=== PATIENT | female | born 1965 | race Caucasian/White ===

== ENCOUNTER → 2018-01-09 | Outpatient (CLI) | payer BC ==
--- NOTE | 2018-01-09 18:16 | Diagnostic Imaging Report ---
INDICATION: Screening. At this time there are no current complaints. EXAMINATION: Bilateral digital screening mammogram with CAD. 3D tomographic images were obtained and reviewed. The current study was also evaluated with a Computer Aided Detection (CAD) system. COMPARISON: This study was compared to the prior exams of 03/21/2016, 04/06/2014 and 03/08/2011. FINDINGS: The fibroglandular tissue in both breasts is heterogeneously dense. This does limit the sensitivity of this exam. Overall, there does not appear to have been any significant change when compared to the prior study. No primary or secondary sign of malignancy is noted. IMPRESSION: There is no radiographic evidence for malignancy. ACR BI-RADS Category 1: Negative. Result letter will be mailed to the patient. Note: At least 10% of breast cancer is not imaged by mammography. Dictated by: Dictated on workstation # [id number]
== END ==
LOC: RAD 07:26
PROVIDERS: ATTEND Internal Medicine
DX: Z12.31 Encounter for screening mammogram for malignant neoplasm of breast (principal)
CPT/HCPCS: 77067

== ENCOUNTER → 2019-01-12 | Outpatient (CLI) | payer BC ==
--- NOTE | 2019-01-12 09:04 | Diagnostic Imaging Report ---
INDICATION: Routine screening. COMPARISON: 01/09/2018 and 03/21/2016. TECHNIQUE: 2D and 3D bilateral screening mammography was performed with CAD. FINDINGS: Both breasts are heterogeneously dense, limiting the sensitivity of mammography. No mass or malignant appearing microcalcifications are identified. The axillae are unremarkable. IMPRESSION: No mammographic features suspicious for malignancy are identified. ACR BI-RADS Category 1: Negative. Result letter will be mailed to the patient. Note: At least 10% of breast cancer is not imaged by mammography. Dictated by: Dictated on workstation # [id number]
== END ==
LOC: RAD 07:50
PROVIDERS: ATTEND Internal Medicine
DX: Z12.31 Encounter for screening mammogram for malignant neoplasm of breast (principal)
CPT/HCPCS: 77067

== ENCOUNTER → 2020-08-18 | Outpatient (CLI) | payer BC ==
--- NOTE | 2020-08-18 11:36 | Diagnostic Imaging Report ---
PROCEDURE: US left lower extremity venous. TECHNIQUE: Multiple real-time grayscale images were obtained over the left lower extremity in various projections. Additional duplex Doppler and color Doppler images were also obtained. INDICATION: Left thigh pain and swelling. FINDINGS: There is no evidence of left lower extremity DVT. Left lower extremity deep venous system shows normal compressibility with normal response to augmentation and Valsalva. No fluid collection or mass is detected. IMPRESSION: No evidence of left lower extremity DVT. Dictated by: Dictated on workstation # [id number]
== END ==
LOC: RAD 10:44
PROVIDERS: ATTEND Chiropractor
DX: M79.652 Pain in left thigh (principal); M79.89 Other specified soft tissue disorders

== ENCOUNTER 2020-08-30 17:41 | Inpatient (IN) | payer BC ==
[~2020-08-30] VITALS: Ht 157.5 cm; Wt 77.4 kg
[2020-08-30] MEDS ORDERED: ONDANSETRON 4 MG/2 ML (SDV) Z0FRAN IVP ONE (18:00)
[2020-08-30] MEDS ORDERED: PANTOPRAZOLE 40 MG (PROTONIX) VIAL IV ONE (18:00)
[2020-08-30] MEDS ORDERED: LACTATED RINGERS 1,000 ML IV ONE (18:00)
--- NOTE | 2020-08-30 18:01 | ED GI ---
General Stated Complaint: ABD PAIN/N/V Source of Information: Patient History of Present Illness Date Seen by Provider: Aug 30, 2020 Time Seen by Provider: 17:51 Initial Comments PT ARRIVES VIA POV FROM HOME WITH PT STATES SHE HAS HAD NAUSEA AND VOMITING ALL DAY TODAY, WITH EPIGASTRIC PAIN STATES IT FEELS LIKE ACID REFLUX STATES SHE THREW UP EVERY 30 MINUTES FROM 10 AM TO 3 PM NO DIARRHEA. LAST BM WAS YESTERDAY AND WAS NORMAL STATES SHE HAS NOT HAD ANYTHING TO EAT OR DRINK TODAY VOIDING A NORMAL AMOUNT AND NO URINARY SYMPTOMS NO FEVER DOES HAVE SOME MID BACK TIGHTNESS--THINKS IT IS FROM VOMITING SO MUCH STATES ABOUT 2 WEEKS AGO, SHE HAD A SIMILAR EPISODE AFTER SHE ATE--AGAIN FELT LIKE "ACID" STATES SHE ONLY VOMITED ONCE HAS BEEN TAKING PEPCID BUT FEELS LIKE IT HAS BEEN MAKING IT WORSE NO SICK CONTACTS OR SUSPICIOUS FOODS STATES 1 1/2 WEEKS AGO SHE WAS DX WITH DVT IN LEFT LEG--UNKNOWN CAUSE, EXCEPT POSSIBLY DUE TO CONTROL HAS BEEN ON XARELTO LMP 1 1/2 WEEKS AGO, WAS ON OCP'S, BUT THESE WERE DC'D WHEN DX WITH DVT. PT HAS NO OTHER MEDICAL PROBLEMS PRIOR TO DVT. PT HAS HAD COVID-19 VACCINES X 2--MODERNA, LAST ONE JULY 08, 2020 PCP: DR. RIGGS Allergies and Home Medications Allergies Coded Allergies: No Known Drug Allergies (Unverified , 08/30/20) Patient Home Medication List Home Medication List Reviewed: Yes Review of Systems Review of Systems Constitutional: no symptoms reported Respiratory: No Symptoms Reported Cardiovascular: No Symptoms Reported Gastrointestinal: See HPI, Abdominal Pain, Nausea, Vomiting Genitourinary: No Symptoms Reported Musculoskeletal: no symptoms reported Skin: no symptoms reported Psychiatric/Neurological: No Symptoms Reported Endocrine: No Symptoms Reported Hematologic/Lymphatic: See HPI Past Diexcyg-Ompkxq-Yuoflz Hx Past Med/Social Hx: Reviewed and Corrections made Patient Social History Alcohol Use: Denies Use Drug of Choice: DENIES Smoking Status: Never a Smoker Past Medical History Surgeries: Yes ( X 2) Respiratory: No Cardiac: Yes (DVT LEFT LEG DX 07/2020) Deep Vein Thrombosis Neurological: No : No Genitourinary: No Gastrointestinal: No Musculoskeletal: No Endocrine: No HEENT: No Cancer: No Psychosocial: No Integumentary: No Blood Disorders: No Physical Exam Vital Signs Vital Signs - First Documented 08/30/20 17:50 Temp 38.0 Pulse 120 Resp 18 B/P (MAP) 139/93 (108) Pulse Ox 94 O2 Delivery Room Air Capillary Refill : Height/Weight/BMI Height: '" Weight: lbs. oz. kg; BMI Method: General Appearance: WD/WN, no apparent distress Respiratory: normal breath sounds, no respiratory distress, no accessory muscle use Cardiovascular: regular rate, rhythm, no murmur Gastrointestinal: normal bowel sounds, soft, no organomegaly, no pulsatile mass ; No distended, No guarding, No rebound; tenderness (DIFFUSE UPPER ABDOMINAL TENDERNESS, MOST TENDER IN EPIGASTRIC AREA. ); No hernia, No mass Extremities: non-tender, no pedal edema, normal capillary refill Back: no CVA tenderness, no vertebral tenderness, other (MILD PARAVERTEBRAL MUSCLE TENDERNESS IN MID BACK) Neurologic/Psychiatric: [facility] II-XII nml as tested, no motor/sensory deficits, alert, normal mood/affect, oriented x 3 Skin: normal color, warm/dry; No rash Focused Exam Lactate Level 08/30/20 18:29: Lactic Acid Level 1.80 Lactic Acid Level Laboratory Tests Test 08/30/20 18:29 Lactic Acid Level 1.80 MMOL/L (0.50-2.00) Progress/Results/Core Measures Results/Orders Lab Results Laboratory Tests Test 08/30/20 17:58 08/30/20 18:29 08/30/20 18:30 Range/Units White Blood Count 26.5 H 4.3-11.0 10^3/uL Red Blood Count 4.71 3.80-5.11 10^6/uL Hemoglobin 13.5 11.5-16.0 g/dL Hematocrit 42 35-52 % Mean Corpuscular Volume 88 80-99 fL Mean Corpuscular Hemoglobin 29 25-34 pg Mean Corpuscular Hemoglobin Concent 33 32-36 g/dL Red Cell Distribution Width 13.9 10.0-14.5 % Platelet Count 613 H 130-400 10^3/uL Mean Platelet Volume 9.7 9.0-12.2 fL Immature Granulocyte % (Auto) 1 % Neutrophils (%) (Auto) 88 H 42-75 % Lymphocytes (%) (Auto) 5 L 12-44 % Monocytes (%) (Auto) 7 0-12 % Eosinophils (%) (Auto) 0 0-10 % Basophils (%) (Auto) 0 0-10 % Neutrophils # (Auto) 23.4 H 1.8-7.8 10^3/uL Lymphocytes # (Auto) 1.2 1.0-4.0 10^3/uL Monocytes # (Auto) 1.7 H 0.0-1.0 10^3/uL Eosinophils # (Auto) 0.0 0.0-0.3 10^3/uL Basophils # (Auto) 0.1 0.0-0.1 10^3/uL Immature Granulocyte # (Auto) 0.1 0.0-0.1 10^3/uL Neutrophils % (Manual) 87 % Lymphocytes % (Manual) 8 % Monocytes % (Manual) 4 % Eosinophils % (Manual) 0 % Basophils % (Manual) 0 % Band Neutrophils 1 % Blood Morphology Comment NORMAL Sodium Level 137 135-145 MMOL/L Potassium Level 3.5 L 3.6-5.0 MMOL/L Chloride Level 99 98-107 MMOL/L Carbon Dioxide Level 22 21-32 MMOL/L Anion Gap 16 H 5-14 MMOL/L Blood Urea Nitrogen 7 7-18 MG/DL Creatinine 0.74 0.60-1.30 MG/DL Estimat Glomerular Filtration Rate > 60 BUN/Creatinine Ratio 9 Glucose Level 139 H 70-105 MG/DL Calcium Level 9.5 8.5-10.1 MG/DL Corrected Calcium 9.5 8.5-10.1 MG/DL Magnesium Level 2.0 1.6-2.4 MG/DL Total Bilirubin 1.2 H 0.1-1.0 MG/DL Aspartate Amino Transf (AST/SGOT) 26 5-34 U/L Alanine Aminotransferase (ALT/SGPT) 35 0-55 U/L Alkaline Phosphatase 108 40-136 U/L Total Protein 8.2 6.4-8.2 GM/DL Albumin 4.0 3.2-4.5 GM/DL Amylase Level 48 25-125 U/L Lipase 9 8-78 U/L Serum Test, Qualitative NEGATIVE NEGATIVE Lactic Acid Level 1.80 0.50-2.00 MMOL/L Urine Color ORANGE Urine Clarity CLEAR Urine pH 7.5 5-9 Urine Specific [place] 1.020 1.016-1.022 Urine Protein TRACE H NEGATIVE Urine Glucose (UA) NEGATIVE NEGATIVE Urine Ketones TRACE H NEGATIVE Urine Nitrite NEGATIVE NEGATIVE Urine Bilirubin NEGATIVE NEGATIVE Urine Urobilinogen 4.0 < = 1.0 MG/DL Urine Leukocyte Esterase NEGATIVE NEGATIVE Urine RBC (Auto) 1+ H NEGATIVE Urine RBC 0-2 /HPF Urine WBC 0-2 /HPF Urine Squamous Epithelial Cells 2-5 /HPF Urine Crystals NONE /LPF Urine Bacteria FEW H /HPF Urine Casts NONE /LPF Urine Mucus NEGATIVE /LPF Urine Culture Indicated NO My Orders Orders - DEANA PACE DO Ed Iv/Invasive Line Start (08/30/20 17:55) Monitor-Rhythm Ecg Trace Only (08/30/20 17:55) Amylase (08/30/20 17:55) Cbc With Automated Diff (08/30/20 17:55) Comprehensive Metabolic Panel (08/30/20 17:55) Lipase (08/30/20 17:55) Magnesium (08/30/20 17:55) Ua Culture If Indicated (08/30/20 17:55) Ondansetron Injection (Zofran Injectio (08/30/20 18:00) Ed Iv/Invasive Line Start (08/30/20 17:55) Lactated Ringers (Lr 1000 Ml Iv Solution (08/30/20 18:00) Pantoprazole Injection (Protonix Injecti (08/30/20 18:00) Hcg,Qualitative Serum (08/30/20 18:01) Manual Differential (08/30/20 17:58) Lactic Acid Analyzer (08/30/20 18:11) Blood Culture (08/30/20 18:11) Ct Abdomen/Pelvis W (08/30/20 18:32) Medications Given in ED Current Medications Medications Dose Ordered Sig/Radha Route Start Time Stop Time Status Last Admin Dose Admin Lactated Ringer's 1,000 ml @ 0 mls/hr Q0M ONCE IV 08/30/20 18:00 08/30/20 18:01 DC 08/30/20 18:45 1,000 MLS/HR Ondansetron HCl 4 mg ONCE ONCE IVP 08/30/20 18:00 08/30/20 18:01 DC 08/30/20 18:42 4 MG Pantoprazole 40 mg ONCE ONCE IV 08/30/20 18:00 08/30/20 18:01 DC 08/30/20 18:44 40 MG Vital Signs/I&O 08/30/20 17:50 Temp 38.0 Pulse 120 Resp 18 B/P (MAP) 139/93 (108) Pulse Ox 94 O2 Delivery Room Air Progress Progress Note : Progress Note GIVEN IV FLUIDS, ZOFRAN, PROTONIX WITH MUCH IMPROVEMENT IN SYMPTOMS PT LATER C/O EPIGASTRIC PAIN-RELIEVED WITH FENTANYL GAVE ZOSYN NO DETERIORATION IN PT'S CONDITION DURING ER STAY Diagnostic Imaging Comments CT ABDOMEN/PELVIS--PER RADIOLOGIST REPORT AT 1952 IMPRESSION: Abnormal appearance of the gallbladder which appears hydropic. There also is a hyperemic gallbladder wall with some thickening and pericholecystic fluid. Acute cholecystitis and cholelithiasis cannot be excluded. Recommend further evaluation with right upper quadrant ultrasound. Fibroid uterus. This too could be better evaluated with pelvic ultrasound. No other acute abnormality in the abdomen or pelvis. Reviewed: Reviewed by Me Departure Communication (Admissions) 1954--SPOKE WITH DR. CRAVEN, SURGEON, ACCEPTS PT FOR ADMIT. ADVISES GERSON. 1956--SPOKE WITH DR. RIGGS, FOR MEDICAL MANAGEMENT. WILL HOLD XARELTO, ANTICIPATE SURGERY TOMORROW Impression Primary Impression: Acute cholecystitis Disposition: ADMITTED INPATIENT Condition: Improved Admissions Decision to Admit Reason: Admit from ER (General) Decision to Admit/Date: Aug 30, 2020 Time/Decision to Admit Time: 19:55 Departure-Patient Inst. Referrals: VALDEMAR RIGGS MD (PCP/Family) Primary Care Physician DEANA PACE DO Aug 30, 2020 18:01
[2020-08-30 18:06] LABS: BASOPHILS # (AUTO) 0.1 10^3/uL (0.0-0.1); BASOPHILS % (AUTO) 0 % (0-10); HEMATOCRIT 42 % (35-52); MEAN PLATELET VOLUME 9.7 fL (9.0-12.2)
[2020-08-30 18:07] LABS: EOSINOPHILS % (AUTO) 0 % (0-10); HEMOGLOBIN 13.5 g/dL (11.5-16.0); LYMPHOCYTES # (AUTO) 1.2 10^3/uL (1.0-4.0); LYMPHOCYTES % (AUTO) 5 % (12-44); MEAN CORPUSCULAR HEMOGLOBIN 29 pg (25-34); MEAN CORPUSCULAR HGB CONC 33 g/dL (32-36); MEAN CORPUSCULAR VOLUME 88 fL (80-99); MONOCYTES # (AUTO) 1.7 10^3/uL (0.0-1.0); MONOCYTES % (AUTO) 7 % (0-12); NEUTROPHILS # (AUTO) 23.4 10^3/uL (1.8-7.8); NEUTROPHILS % (AUTO) 88 % (42-75); PLATELET COUNT 613 10^3/uL (130-400); WHITE BLOOD COUNT 26.5 10^3/uL (4.3-11.0)
[2020-08-30 18:19] LABS: BAND NEUTROPHILS 1 %; BASOPHILS % (MANUAL) 0 %; EOSINOPHILS % (MANUAL) 0 %; LYMPHOCYTES % (MANUAL) 8 %; MONOCYTES % (MANUAL) 4 %; NEUTROPHILS % (MANUAL) 87 %; RBC MORPH NORMAL
[2020-08-30 18:24] LABS: CHLORIDE 99 MMOL/L (98-107); POTASSIUM 3.5 MMOL/L (3.6-5.0); SODIUM 137 MMOL/L (135-145)
[2020-08-30 18:25] LABS: AMYLASE 48 U/L (25-125)
[2020-08-30 18:26] LABS: CALCIUM 9.5 MG/DL (8.5-10.1)
[2020-08-30 18:27] LABS: GLUCOSE 139 MG/DL (70-105); TOTAL PROTEIN 8.2 GM/DL (6.4-8.2)
[2020-08-30 18:28] LABS: CARBON DIOXIDE 22 MMOL/L (21-32)
[2020-08-30 18:29] LABS: BILIRUBIN,TOTAL 1.2 MG/DL (0.1-1.0)
[2020-08-30 18:30] LABS: ALKALINE PHOSPHATASE 108 U/L (40-136); CREATININE SERUM 0.74 MG/DL (0.60-1.30); GFR ESTIMATED > 60
[2020-08-30 18:31] LABS: BUN/CREATININE RATIO 9
[2020-08-30 18:33] LABS: ALANINE AMINOTRANSFERASE 35 U/L (0-55)
[2020-08-30 18:34] LABS: LIPASE 9 U/L (8-78)
[2020-08-30 18:38] LABS: BILIRUBIN,URINE NEGATIVE (NEGATIVE); CLARITY,URINE CLEAR; COLOR,URINE ORANGE; GLUCOSE, URINE (UA) NEGATIVE (NEGATIVE); KETONES,URINE TRACE (NEGATIVE); LEUKOCYTE ESTERASE ,URINE NEGATIVE (NEGATIVE); NITRITE,URINE NEGATIVE (NEGATIVE); PH,URINE 7.5 (5-9); PROTEIN,URINE TRACE (NEGATIVE)
[2020-08-30 18:46] LABS: BACTERIA,URINE FEW /HPF; RBC,URINE 0-2 /HPF; WBC,URINE 0-2 /HPF
--- NOTE | 2020-08-30 19:50 | Diagnostic Imaging Report ---
PROCEDURE: CT abdomen and pelvis with contrast. TECHNIQUE: Multiple contiguous axial images were obtained through the abdomen and pelvis after administration of intravenous contrast. Auto Exposure Controls were utilized during the CT exam to meet ALARA standards for radiation dose reduction. All CT scans use one or more of the following dose optimizing techniques: automated exposure control, MA and/or KvP adjustment based on patient size and exam type or iterative reconstruction. INDICATION: Abdominal pain, nausea, vomiting and left lower quadrant pain. FINDINGS: Heart size is normal. The lung bases are clear. The liver is normal in size without focal lesions. Gallbladder is hydropic. There is some wall thickening and pericholecystic fluid. There is no biliary ductal dilatation. The spleen is normal. The pancreas and adrenal glands are unremarkable. The kidneys are normal in appearance. The aorta is nonaneurysmal. The bowel gas pattern is nonspecific. There appears to be a fibroid uterus. There is no free air. There is no pelvic mass or adenopathy. Bladder is normal. The osseous structures are unremarkable. IMPRESSION: Abnormal appearance of the gallbladder which appears hydropic. There also is a hyperemic gallbladder wall with some thickening and pericholecystic fluid. Acute cholecystitis and cholelithiasis cannot be excluded. Recommend further evaluation with right upper quadrant ultrasound. Fibroid uterus. This too could be better evaluated with pelvic ultrasound. No other acute abnormality in the abdomen or pelvis. Dictated by: Dictated on workstation # [id number]
[2020-08-30] MEDS ORDERED: PIPERACILLIN SODIUM/TAZOBACTAM 4.5 GM in NS (IVPB) 100 ML IV ONE (20:15)
[2020-08-30] MEDS ORDERED: fentaNYL INJ 100 MCG/2 ML AMP IVP ONE (20:45)
[2020-08-30] MEDS ORDERED: D5 1/2 NS W/KCL 20 MEQ/L 1,000 ML IV ONE (21:45)
[2020-08-30 21:52] VITALS: BP 137/84
[2020-08-30] MEDS: D5 1/2 NS W/KCL 20 MEQ/L 1,000 ML IV SCH (22:41)
[2020-08-30] MEDS: ONDANSETRON 4 MG/2 ML (SDV) Z0FRAN IV PRN (23:39)
[2020-08-30] MEDS: fentaNYL INJ 100 MCG/2 ML AMP IV PRN (23:39)
[2020-08-31] VITALS (13 sets, daily range): BP systolic 117–146; BP diastolic 59–89
[2020-08-31] MEDS ORDERED: NS (IVPB) 100 ML ONE (02:05)
[2020-08-31] MEDS ORDERED: PIPERACILLIN/TAZO 4.5 GM VIAL (ZOSYN) IV ONE (02:05)
[2020-08-31] MEDS: PIPERACILLIN/TAZO 4.5 GM/NS 100 ML IV SCH ×6 (02:20→17:50)
[2020-08-31 05:41] LABS: BASOPHILS # (AUTO) 0.1 10^3/uL (0.0-0.1); BASOPHILS % (AUTO) 0 % (0-10); EOSINOPHILS % (AUTO) 0 % (0-10); HEMATOCRIT 37 % (35-52); LYMPHOCYTES % (AUTO) 3 % (12-44); MEAN CORPUSCULAR HEMOGLOBIN 29 pg (25-34); MEAN CORPUSCULAR HGB CONC 32 g/dL (32-36); MEAN CORPUSCULAR VOLUME 90 fL (80-99); MEAN PLATELET VOLUME 10.7 fL (9.0-12.2); MONOCYTES # (AUTO) 2.4 10^3/uL (0.0-1.0); MONOCYTES % (AUTO) 6 % (0-12); NEUTROPHILS # (AUTO) 34.1 10^3/uL (1.8-7.8); NEUTROPHILS % (AUTO) 90 % (42-75); PLATELET COUNT 384 10^3/uL (130-400)
[2020-08-31 05:44] LABS: WHITE BLOOD COUNT 38.2 10^3/uL (4.3-11.0)
[2020-08-31] MEDS: ONDANSETRON 4 MG/2 ML (SDV) Z0FRAN IV PRN (05:47)
[2020-08-31] MEDS: fentaNYL INJ 100 MCG/2 ML AMP IV PRN ×5 (05:52→15:34)
[2020-08-31 05:59] LABS: ALBUMIN 3.4 GM/DL (3.2-4.5); CHLORIDE 100 MMOL/L (98-107); POTASSIUM 3.6 MMOL/L (3.6-5.0); SODIUM 134 MMOL/L (135-145)
[2020-08-31 06:00] LABS: AMYLASE 31 U/L (25-125)
[2020-08-31 06:01] LABS: CALCIUM 8.7 MG/DL (8.5-10.1)
[2020-08-31 06:02] LABS: GLUCOSE 147 MG/DL (70-105)
[2020-08-31 06:03] LABS: CARBON DIOXIDE 22 MMOL/L (21-32)
[2020-08-31 06:04] LABS: BILIRUBIN,TOTAL 1.6 MG/DL (0.1-1.0)
[2020-08-31 06:05] LABS: ALKALINE PHOSPHATASE 96 U/L (40-136); GFR ESTIMATED > 60
[2020-08-31 06:06] LABS: BUN/CREATININE RATIO 7
[2020-08-31 06:08] LABS: ALANINE AMINOTRANSFERASE 27 U/L (0-55)
[2020-08-31 06:09] LABS: LIPASE 6 U/L (8-78)
[2020-08-31] MEDS: D5 1/2 NS W/KCL 20 MEQ/L 1,000 ML IV SCH ×2 (09:02→11:57)
[2020-08-31] MEDS: PANTOPRAZOLE 40 MG (PROTONIX) VIAL IV SCH (09:02)
[2020-08-31] MEDS ORDERED: ALBU18HF2 INH (14:26)
[2020-08-31] MEDS ORDERED: RIVA15TA PO (14:26)
[2020-08-31] MEDS ORDERED: FAMO20TA3 PO (14:26)
[2020-08-31] MEDS ORDERED: ACET-2267 PO (14:26)
--- NOTE | 2020-08-31 16:49 | History & Physical-Surgical ---
History of Present Illness History of Present Illness Reason for visit/HPI CC: N/V abdominal pain 54 year old female with 2 weeks of abdominal pain located in epigastric/ruq. Radiates to back. Thought it was more reflux. Eating seemed to make it worse. Nothing really making better. Then had food and thought had food poisoning having multiple episodes of nausea and vomiting. Patient has been on Xarelto for a blood clot which she last took yesterday morning at 8 am for possible blood clot, but u/s was negative. She had ct scan abdomen and pelvis with distended gallbladder and thickened wall with pericholecystic fluid. Date of Admission Aug 30, 2020 at 20:00 Date Seen by a Provider: Aug 31, 2020 Time Seen by a Provider: 16:48 I consulted on this patient on 08/31/20 16:43 Attending Physician Iker Dhillon DO Admitting Physician Lucio Ayoub MD Consult Allergies and Home Medications Allergies Coded Allergies: No Known Drug Allergies (Unverified , 08/30/20) Home Medications Acetaminophen 500 Mg Tablet, 500-1,000 MG PO Q8H PRN for PAIN-MILD (1-4), (Reported) Last Action: Reviewed Albuterol Sulfate 18 Gm Hfa.aer.ad, 2 PUFF INH Q6H PRN for SHORTNESS OF BREATH, (Reported) Last Action: Reviewed Famotidine 20 Mg Tablet, 20 MG PO BID PRN for HEARTBURN, (Reported) Last Action: Reviewed Rivaroxaban 15 Mg Tablet, 15 MG PO BID, (Reported) TAKING 15MG TWICE DAILY X 21 DAYS (STARTED 08-18-2020) Last Action: Reviewed Patient Home Medication List Home Medication List Reviewed: Yes Past Ohdydso-Zvupba-Bvjavs Hx Patient Social History Drug of Choice: DENIES Smoking Status: Never a Smoker Alcohol Use?: No Have you traveled recently?: No Surgeries History of Surgeries: Yes ( X 2) Respiratory History of Respiratory Disorde: No Cardiovascular History of Cardiac Disorders: Yes (DVT LEFT LEG DX 07/2020) Cardiac Disorders: Deep Vein Thrombosis Neurological History of Neurological Disord: No Reproductive System : No Genitourinary History of Genitourinary Disor: No Gastrointestinal History of Gastrointestinal Di: No Musculoskeletal History of Musculoskeletal Dis: No Endocrine History of Endocrine Disorders: No HEENT History of HEENT Disorders: No Cancer History of Cancer: No Psychosocial History of Psychiatric Problem: No Integumentary History of Skin or Integumenta: No Blood Transfusions History of Blood Disorders: No Reviewed Nursing Assessment Reviewed/Agree w Nursing PMH: Yes Family Medical History Significant Family History: No Pertinent Family Hx Review of Systems Constitutional: No chills, No diaphoresis, No weakness EENTM: No blurred vision, No double vision Respiratory: No cough, No dyspnea on exertion Cardiovascular: No chest pain, No palpitations Gastrointestinal: abdominal pain (RUQ), nausea, vomiting Genitourinary: No decreased output, No discharge Musculoskeletal: back pain Skin: No change in color, No change in hair/nails Psychiatric/Neurological: Denies Anxiety, Denies Depressed, Denies Emotional Problems All Other Systems Reviewed Negative Unless Noted: Yes (Negative excepted noted.) Physical Exam Vital Signs Vital Signs - First Documented 08/30/20 17:50 Temp 38.0 Pulse 120 Resp 18 B/P (MAP) 139/93 (108) Pulse Ox 94 O2 Delivery Room Air Capillary Refill : Less Than 3 Seconds Height, Weight, BMI Height: '" Weight: lbs. oz. kg; 31.20 BMI Method: General Appearance: No Apparent Distress, WD/WN HEENT: PERRL/EOMI, Normal ENT Inspection Neck: Normal Inspection, Non Tender, Supple Respiratory: Chest Non Tender, No Accessory Muscle Use, No Respiratory Distress Cardiovascular: Regular Rate, Rhythm, No JVD Gastrointestinal: Soft, Tenderness (ruq) Rectal: Deferred Back: Muscle Spasm Extremity: Normal Range of Motion, Non Tender Neurologic/Psychiatric: Alert, Oriented x3, No Motor/Sensory Deficits, Normal Mood/Affect, open shank coverer II-XII Norm as Tested Skin: Normal Color, Warm/Dry Lymphatic: No Adenopathy Data Review Labs Laboratory Tests 08/30/20 17:58: White Blood Count 26.5H, Red Blood Count 4.71, Hemoglobin 13.5, Hematocrit 42, Mean Corpuscular Volume 88, Mean Corpuscular Hemoglobin 29, Mean Corpuscular Hemoglobin Concent 33, Red Cell Distribution Width 13.9, Platelet Count 613H, Mean Platelet Volume 9.7, Immature Granulocyte % (Auto) 1, Neutrophils (%) (Auto) 88H, Lymphocytes (%) (Auto) 5L, Monocytes (%) (Auto) 7, Eosinophils (%) (Auto) 0, Basophils (%) (Auto) 0, Neutrophils # (Auto) 23.4H, Lymphocytes # (Auto) 1.2, Monocytes # (Auto) 1.7H, Eosinophils # (Auto) 0.0, Basophils # (Auto) 0.1, Immature Granulocyte # (Auto) 0.1, Neutrophils % (Manual) 87, Lymphocytes % (Manual) 8, Monocytes % (Manual) 4, Eosinophils % (Manual) 0, Basophils % (Manual) 0, Band Neutrophils 1, Blood Morphology Comment NORMAL, Sodium Level 137, Potassium Level 3.5L, Chloride Level 99, Carbon Dioxide Level 22, Anion Gap 16H, Blood Urea Nitrogen 7, Creatinine 0.74, Estimat Glomerular Filtration Rate > 60, BUN/Creatinine Ratio 9, Glucose Level 139H, Calcium Level 9.5, Corrected Calcium 9.5, Magnesium Level 2.0, Total Bilirubin 1.2H, Aspartate Amino Transf (AST/SGOT) 26, Alanine Aminotransferase (ALT/SGPT) 35, Alkaline [place] sphatase 108, Total Protein 8.2, Albumin 4.0, Amylase Level 48, Lipase 9, Serum Test, Qualitative NEGATIVE 08/30/20 18:29: Lactic Acid Level 1.80 08/30/20 18:30: Urine Color ORANGE, Urine Clarity CLEAR, Urine pH 7.5, Urine Specific [place] 1.020, Urine Protein TRACEH, Urine Glucose (UA) NEGATIVE, Urine Ketones TRACEH, Urine Nitrite NEGATIVE, Urine Bilirubin NEGATIVE, Urine Urobilinogen 4.0, Urine Leukocyte Esterase NEGATIVE, Urine RBC (Auto) 1+H, Urine RBC 0-2, Urine WBC 0-2, Urine Squamous Epithelial Cells 2-5, Urine Crystals NONE, Urine Bacteria FEWH, Urine Casts NONE, Urine Mucus NEGATIVE, Urine Culture Indicated NO 08/31/20 05:10: White Blood Count 38.2*H, Red Blood Count 4.18, Hemoglobin 12.0, Hematocrit 37, Mean Corpuscular Volume 90, Mean Corpuscular Hemoglobin 29, Mean Corpuscular Hemoglobin Concent 32, Red Cell Distribution Width 14.3, Platelet Count 384, Mean Platelet Volume 10.7, Immature Granulocyte % (Auto) 2, Neutrophils (%) (Auto) 90H, Lymphocytes (%) (Auto) 3L, Monocytes (%) (Auto) 6, Eosinophils (%) (Auto) 0, Basophils (%) (Auto) 0, Neutrophils # (Auto) 34.1H, Lymphocytes # (Auto) 1.0, Monocytes # (Auto) 2.4H, Eosinophils # (Auto) 0.0, Basophils # (Auto) 0.1, Immature Granulocyte # (Auto) 0.6H, Sodium Level 134L, Potassium Level 3.6, Chloride Level 100, Carbon Dioxide Level 22, Anion Gap 12, Blood Urea Nitrogen 5L, Creatinine 0.70, Estimat Glomerular Filtration Rate > 60, BUN/Creatinine Ratio 7, Glucose Level 147H, Calcium Level 8.7, Corrected Calcium 9.2, Total Bilirubin 1.6H, Aspartate Amino Transf (AST/SGOT) 22, Alanine Aminotransferase (ALT/SGPT) 27, Alkaline Phosphatase 96, Total Protein 7.0, Albumin 3.4, Amylase Level 31, Lipase 6L Microbiology 08/30/20 Blood Culture - Preliminary, Resulted No growth Assessment/Plan Assessment/Plan Admission Diagonsis ruq abdominal pain cholecystitis leukocytosis jail anticoagulation Admission Status: Observation Assessment/Plan ruq abdominal pain cholecystitis leukocytosis jail anticoagulation patient discussed risks and benefits of laparoscopic cholecystectomy IOC and all other indicated procedures she understands and wishes to proceed. On Zosyn NPO IV hydration Xarelto on hold IKER DHILLON DO Aug 31, 2020 16:49
[2020-08-31] MEDS ORDERED: ROCURONIUM 10 MG/ML 5 ML SYRINGE IV ONE (17:14)
[2020-08-31] MEDS ORDERED: proPOfol 200 MG/20 ML (DIPRIVAN) VIAL IV ONE (17:14)
[2020-08-31] MEDS ORDERED: SEVOFLURANE (ULTANE) 15 ML INHAL SOLN ONE ×5 (17:14→18:46)
[2020-08-31] MEDS ORDERED: fentaNYL INJ 100 MCG/2 ML AMP ONE (17:14)
[2020-08-31] MEDS ORDERED: MIDAZOLAM 2 MG/2 ML (VERSED) VIAL ONE (17:14)
[2020-08-31] MEDS ORDERED: ONDANSETRON 4 MG/2 ML (SDV) Z0FRAN ONE (17:14)
[2020-08-31] MEDS: LACTATED RINGERS 1,000 ML IV SCH ×3 (17:17→19:04)
[2020-08-31] MEDS ORDERED: LIDOCAINE/EPI 1%-1:100,000 (XYLOCAINE) 20ML ONE (17:33)
[2020-08-31] MEDS ORDERED: HYDROmorphone 2 MG/ML VIAL (DILAUDID) ONE (18:07)
[2020-08-31] MEDS ORDERED: GLYCOPYRROLATE 0.2 MG/ML (ROBINUL) 2 ML VIAL ONE (18:45)
[2020-08-31] MEDS ORDERED: NEOSTIGMINE 3 MG/3 ML VIAL ONE (18:45)
[2020-08-31] MEDS ORDERED: KETOROLAC 30 MG/ML VIAL ONE (18:47)
--- NOTE | 2020-08-31 18:49 | Diagnostic Imaging Report ---
INDICATION: Intraoperative fluoroscopy. FINDINGS: 21 seconds of fluoroscopy was utilized. There is no intrahepatic or extrahepatic biliary ductal dilatation. There is however what appears be a filling defect in the distal common bile duct. There is passage of contrast into the duodenum. There is minimal extravasation following cholecystectomy IMPRESSION: Findings highly suspect for distal choledocholithiasis with minimal dilatation of the common bile duct. Please correlate with formal operative report. Dictated by: Dictated on workstation # [id number]
--- NOTE | 2020-08-31 19:17 | Progress Note-Post Operative ---
Post-Operative Progess Note Surgeon (s)/Equipment Detailer (s) Surgeon IKER CRAVEN DO Equipment Detailer: Dr. Benito to assist in retraction dissection and closure. Pre-Operative Diagnosis cholecystitis Post-Operative Diagnosis hydrops, cholecystitis, choledocholithiasis Procedure & Operative Findings Date of Procedure 08/31/20 Procedure Performed/Findings PROCEDURE: Laparoscopic cholecystectomy with intraoperative cholangiogram. COMPLICATIONS: None. PROCEDURE: The patient was taken to the operating suite and was prepped and draped in sterile fashion. A surgical pause was performed. Just superior to the umbilicus, a 12 mm incision was made. Dissection was taken down to the fascia, which was then scored and grasped with a Doretha and the abdomen was then entered. A 0 Vicryl suture was placed in a eusxkv-lo-ngjav fashion and a Belle trocar was placed and secured. Pneumoperitoneum was achieved. A 5mm trochar place in the subxyphoid and 2 in the right upper quadrant. The gallbladder was distended, inflamed. It was then grasped, decompressed and elevated. The cystic duct, and cystic artery were then dissected out. Clip was placed on the distal portion of the cystic duct which was then partially transected. An arrow catheter was inserted into the duct. The cholangiogram was then performed. Filing defect distal common bile duct and contrast made its way into the duodenum. Catheter removed. Clips were placed on proximal portion of the cystic duct and then the duct was then transected. Clips were placed along the proximal and distal portion of the cystic artery which was then transected. Hook cautery was used to dissect the gallbladder from the gallbladder fossa achieving hemostasis. The gallbladder was placed in an Endobag and removed through the 12 mm trocar site. The abdomen was then reinspected. Copious amounts of irrigation were used to irrigate the abdomen and there were no signs of active bleeding. A piece of surgicel was placed within the gallbladder fossa. Hemostasis had been achieved. A [address] in the gallbladder fossa and brought out through 5 mm trochar site and secured. The 12 mm fascial defect was then closed with 0 Vicryl suture that had been placed in a onhyyg-aw-eaxjw fashion. The abdomen was then desufflated, the trocars were removed. The abdomen was then washed and dried. The skin was then closed using 4-0 Monocryl in a subcuticular fashion. The abdomen was washed and dried and Skin Affix was place over incisions. Patient tolerated the procedure well without any complications and was taken to the recovery room in stable condition. Anesthesia Type general Estimated Blood Loss Estimated blood loss (mL): minimal Specimens/Packing Specimens Removed gallbladder Packing: surgicel IKER CRAVEN DO Aug 31, 2020 19:16
[2020-08-31] MEDS ORDERED: ONDANSETRON 4 MG/2 ML (SDV) Z0FRAN IVP PRN (19:45)
[2020-08-31] MEDS ORDERED: HYDROmorphone 2 MG/ML VIAL (DILAUDID) IV ONE (19:45)
--- NOTE | 2020-08-31 20:03 | Anesthesia-General Post-Op ---
General Patient Condition Mental Status/LOC: Same as Preop Cardiovascular: Satisfactory Nausea/Vomiting: Absent Respiratory: Satisfactory Pain: Controlled Complications: Absent Post Op Complications Complications None Follow Up Care/Instructions Patient Instructions None needed. Anesthesia/Patient Condition Patient Condition Patient is doing well, no complaints, stable vital signs, no apparent adverse anesthesia problems. No complications reported per nursing. [place] [facility] [place] ANAY HOUSE CRNA Aug 31, 2020 20:02
[2020-09-01] MEDS: LACTATED RINGERS 1,000 ML IV SCH ×3 (01:04→13:05)
[2020-09-01] MEDS: PIPERACILLIN/TAZO 4.5 GM/NS 100 ML IV SCH ×4 (01:14→11:40)
[2020-09-01 04:07] VITALS: BP 129/65
[2020-09-01 05:20] LABS: HEMATOCRIT 35 % (35-52); HEMOGLOBIN 11.1 g/dL (11.5-16.0); MEAN CORPUSCULAR HEMOGLOBIN 29 pg (25-34); MEAN CORPUSCULAR HGB CONC 31 g/dL (32-36); MEAN CORPUSCULAR VOLUME 92 fL (80-99); MEAN PLATELET VOLUME 9.9 fL (9.0-12.2); PLATELET COUNT 454 10^3/uL (130-400)
[2020-09-01 05:27] LABS: WHITE BLOOD COUNT 30.9 10^3/uL (4.3-11.0)
[2020-09-01 05:28] LABS: CHLORIDE 103 MMOL/L (98-107); POTASSIUM 4.4 MMOL/L (3.6-5.0); SODIUM 135 MMOL/L (135-145)
[2020-09-01 05:29] LABS: CALCIUM 8.9 MG/DL (8.5-10.1)
[2020-09-01 05:30] LABS: GLUCOSE 153 MG/DL (70-105); TOTAL PROTEIN 6.2 GM/DL (6.4-8.2)
[2020-09-01 05:31] LABS: CARBON DIOXIDE 24 MMOL/L (21-32)
[2020-09-01 05:32] LABS: BILIRUBIN,TOTAL 0.9 MG/DL (0.1-1.0)
[2020-09-01 05:33] LABS: ALKALINE PHOSPHATASE 89 U/L (40-136)
[2020-09-01 05:34] LABS: CREATININE SERUM 0.72 MG/DL (0.60-1.30); GFR ESTIMATED > 60
[2020-09-01 05:35] LABS: BUN/CREATININE RATIO 11
[2020-09-01 05:37] LABS: ALANINE AMINOTRANSFERASE 25 U/L (0-55)
[2020-09-01] MEDS: PANTOPRAZOLE 40 MG (PROTONIX) VIAL IV SCH (08:11)
[2020-09-01 08:25] VITALS: BP 135/75
[2020-09-01] MEDS ORDERED: ENOXAPARIN 40 MG/0.4 ML (LOVENOX) SYR ONE (11:28)
[2020-09-01 12:26] VITALS: BP 134/65
[2020-09-01] MEDS ORDERED: DOCU-143 PO (16:09)
[2020-09-01] MEDS ORDERED: AMOX-358 PO (16:09)
[2020-09-01] MEDS ORDERED: ACHD5005 PO (16:09)
--- NOTE | 2020-09-01 16:11 | Discharge Inst-Simple/Standard ---
Discharge Inst-Standard Discharge Medications New, Converted or Re-Newed RX: Transmitted to Pharmacy Patient Instructions/Follow Up Plan of Care/Instructions/FU: Transferred to [facility] Will follow up with me when drain is less than 30 mL in 24 hours. Activity as Tolerated: No (NPO) Discharge Diet: Other Diet (nothing to eat or drink.) IKER CRAVEN DO Sep 01, 2020 16:11
--- NOTE | 2020-09-01 20:53 | DISCHARGE SUMMARY ---
DATE OF SERVICE: 08/30/2020 ADMITTING PHYSICIAN: Iker Dhillon DO. ADMITTING DIAGNOSES: Right upper quadrant abdominal pain, cholecystitis, leukocytosis and long-term anticoagulation. DISCHARGE DIAGNOSES: Right upper quadrant abdominal pain, cholecystitis, status post laparoscopic cholecystectomy, choledocholithiasis, leukocytosis and long-term anticoagulation. HOSPITAL COURSE: The patient is a 54-year-old female, who presented with two weeks of abdominal pain, nausea and vomiting. She had a CT scan performed, which demonstrated changes consistent with cholecystitis with gallbladder wall thickening and pericholecystic fluid. She was recently placed on Xarelto for a DVT. The patient had the Xarelto held. We waited 24 hours and then the patient underwent laparoscopic cholecystectomy with intraoperative cholangiogram. The patient was found to have a stone within the common bile duct. Contrast did make its way into the duodenum though. The patient today on 09/01/2020 is feeling better after having her gallbladder removed. She is not having the pain. She is just having a sore, tender type pain. She is not having the nausea or vomiting at this time. The patient had drain that appears to be serosanguineous. The patient currently n.p.o. The patient, due to the choledocholithiasis, is being transferred for ERCP. Arrangements have been made for the patient to be transferred to [facility] in [place]. She had been continued on Zosyn currently. Once the drain output is less than 30 mL in 24 hours, she will need to have her drain removed. I have also sent in prescriptions for her Augmentin mg b.i.d. for seven days. Pain medication of hydrocodone 5 mg one tablet q.4 hours as needed for pain. Colace 100 mg p.o. b.i.d. #30. The patient after procedure to resume her Xarelto for DVT. Please see further information in the computer. Job ID: [id number] DocumentID: [id number] Dictated Date: 09/01/2020 16:18:29 [employer]ug Machine Operator Date: 09/01/2020 20:52:24 Dictated By: IKER DHILLON DO
== END 2020-09-01 15:00 | disposition short-term general hospital (02) | DRG 419 ==
LOC: EDUNIT# 17:41 → ER 17:42 → 4TH 20:00
PROVIDERS: ADMIT Surgery; ATTEND Surgery
PROC: 0FT44ZZ Resection of Gallbladder, Percutaneous Endoscopic Approach (ICD-10-PCS; principal; 2020-08-30)
PROC: BF13YZZ Fluoroscopy of Gallbladder and Bile Ducts using Other Contrast (ICD-10-PCS; 2020-08-30)
DX: K80.40 Calculus of bile duct with cholecystitis, unspecified, without obstruction (principal); R60.9 Edema, unspecified; Z86.718 Personal history of other venous thrombosis and embolism; Z79.01 Long term (current) use of anticoagulants; D72.829 Elevated white blood cell count, unspecified
CPT/HCPCS: 36415; 74177; 76000; 80053; 81000; 82150; 83605; 83690; 83735; 84703; 85007; 85025; 85027; 87040; 87081; 94664

== ENCOUNTER → 2020-11-24 | Outpatient (CLI) | payer BC ==
[~2020-11-24] MED LIST: ACET-2267 PO; ACHD5005 PO; ALBU18HF2 INH; AMOX-358 PO; DOCU-143 PO; FAMO20TA3 PO; RIVA15TA PO
--- NOTE | 2020-11-24 09:13 | Diagnostic Imaging Report ---
PROCEDURE: US left lower extremity venous. TECHNIQUE: Multiple real-time grayscale images were obtained over the left lower extremity in various projections. Additional duplex Doppler and color Doppler images were also obtained. INDICATION: Left deep venous thrombosis There is partially occlusive thrombus within the left common femoral vein as well as the proximal aspect of left superficial femoral vein. No other filling defect is seen in the thigh or popliteal regions. Focal regions of thrombosis are seen within the left posterior tibial vein. IMPRESSION: Incompletely occlusive, possibly chronic thrombus is seen within the left common femoral and proximal superficial femoral veins as well as within posterior tibial veins of the calf. Dictated by: Dictated on workstation # [id number]
== END ==
LOC: RAD 08:00
PROVIDERS: ATTEND Nurse Practitioner Family
DX: I82.622 Acute embolism and thrombosis of deep veins of left upper extremity (principal)